=== PATIENT | female | born 1990 | race Caucasian/White ===

== ENCOUNTER 2017-03-23 22:03 | Emergency (ER) | payer MEDICAID ==
--- NOTE | ~2017-03-23 | CR20 ---
[facility]. [facility] A Service of [facility] RADIOLOGY TEXT RESULTS PATIENT: WONG OBREGON LOCATION: SED : [birth year] UNIT #: [id number] AGE: [address]: Lamonte Wright MD SEX: F ORDER DR: [id number] [address] [address] [id number] MR#: [id number] Acc #: [id number] NAME: WONG OBREGON : 1990 SEX: F STUDY DATE/TIME: 03/23/2017 22:00 UNIT: SED ROOM: STUDY DESCRIPTION: CR Ankle Min 3 Views Lt Attending Physician: Lamonte Wright M.D. Ordering Physician: Lamonte Wright M.D. Primary Care Physician: No Primary Care Physician MEDICAL IMAGING REPORT This report is preliminary unless electronic signature is present. EXAM Left ankle series 03/23/2017 HISTORY Pain, pain and swelling since this a.m. Going down slide. FINDINGS AP lateral and oblique radiographs of the left ankle are presented. No traumatic fracture or malalignment. The ankle mortise joint is intact. Mild soft tissue swelling suggested adjacent to the lateral malleolus. Correlate with exam and mechanism of injury. Dictated by... Lamonte Garsia M.D. THIS IS AN ELECTRONICALLY VERIFIED REPORT Lamonte Garsia M.D. at 03/24/2017 10:44 PM Ralf TD: 03/23/2017 23:39 JOB #: [id number] MEDICAL IMAGING REPORT Page 1 of 1
--- NOTE | ~2017-03-23 | CR126 ---
[facility] [place] Service of [facility] RADIOLOGY TEXT RESULTS PATIENT: WONG OBREGON LOCATION: SED : [birth year] UNIT #: [id number] AGE: [address]: Lamonte Wright MD SEX: F ORDER DR: [id number] [address] [address] [id number] MR#: [id number] Acc #: [id number] NAME: WONG OBREGON. : 1990 SEX: F STUDY DATE/TIME: 03/23/2017 22:00 UNIT: SED ROOM: STUDY DESCRIPTION: CR Foot Complete Min 3 View Lt Attending Physician: Lamonte Wright M.D. Ordering Physician: Lamonte Wright M.D. MEDICAL IMAGING REPORT This report is preliminary unless electronic signature is present. EXAM Left foot series 03/23/2017 HISTORY Pain and swelling, pain since this a.m., going down slide. FINDINGS AP, lateral and oblique radiographs of the left foot are presented. Normal bony mineralization. No traumatic fracture or malalignment. The joint spaces are intact. No soft tissue defect, subcutaneous air or radiodense foreign body. Dictated by.. . Lamonte Garsia M.D. THIS IS AN ELECTRONICALLY VERIFIED REPORT Lamonte Garsia M.D. at 03/24/2017 10:44 PM ROMEO/ariadna TD: 03/23/2017 23:52 JOB #: [id number] MEDICAL IMAGING REPORT Page 1 of 1
[~2017-03-23 22:03] MED LIST: ACYCLOVIR200 MG PO; ANAPROX DS550 M1 PO; AUGMENTIN875 MG PO; BACTRIM DS TABL1 TA1 PO; ERYTHROMYCIN O3.5 GM OD; LORTAB 5/500 TA1 TA1 PO; NO MEDICATIONS; TYLENOL #3 PO; VIBRAMYCIN100 M1 PO
== END 2017-03-23 23:50 | disposition home or self-care (01) ==
LOC: SED 22:03
DX: S99.922A Unspecified injury of left foot, initial encounter (principal); F17.200 Nicotine dependence, unspecified, uncomplicated; X58.XXXA Exposure to other specified factors, initial encounter
CPT/HCPCS: 73610; 73630; 99283